=== PATIENT | female | born 1975 | race Caucasian/White ===

== ENCOUNTER → 2017-08-02 | Outpatient (CLI) | payer OTHER ==
[2017-08-02 09:03] LABS: ALBUMIN 3.6 g/dL (3.4-5.0); ALKALINE PHOSPHATASE 57 U/L (46-116); ALT/SGPT 49 U/L (14-59); AST/SGOT 41 U/L (15-37); BILIRUBIN TOTAL 0.26 mg/dL (0.20-1.00); CALCIUM 8.8 mg/dL (8.5-10.1); CARBON DIOXIDE 29.8 mmol/L (21-32); CHLORIDE SERUM 105 mmol/L (98-107); CREATININE SERUM 0.8 mg/dL (0.6-1.0); GFR1 > 60 mL/min; GLUCOSE SERUM 94 mg/dL (74-106); POTASSIUM SERUM 4.2 mmol/L (3.5-5.1); SODIUM SERUM 139 mmol/L (136-145); TOTAL PROTEIN, SERUM 7.2 g/dL (6.4-8.2); TRIGLYCERIDES 159 mg/dL (<150)
[2017-08-02 09:05] LABS: CHOLESTEROL 254 mg/dL (<200); CHOLESTEROL/HDL RATIO 2.9; HDL CHOLESTEROL 88 mg/dL (40-60)
== END | disposition home or self-care (01) ==
LOC: LB 07:35
DX: E78.5 Hyperlipidemia, unspecified (principal)

== ENCOUNTER → 2017-10-11 | Outpatient (CLI) | payer OTHER | END | disposition home or self-care (01) | LOC: MA 13:36 | PROC: BH02ZZZ Plain Radiography of Bilateral Breasts (ICD-10-PCS; principal; 2017-10-11) | DX: Z12.31 Encounter for screening mammogram for malignant neoplasm of breast (principal) | CPT/HCPCS: G0202 ==

== ENCOUNTER → 2017-11-28 | Outpatient (CLI) | payer OTHER | END | disposition home or self-care (01) | LOC: US 07:20 | PROC: BF42ZZZ Ultrasonography of Gallbladder (ICD-10-PCS; principal; 2017-11-28) | DX: R10.13 Epigastric pain (principal) ==

== ENCOUNTER 2017-12-03 06:56 | Day surgery (SDC) | payer OTHER ==
[~2017-12-03] VITALS: Ht 167.6 cm; Wt 70.8 kg
[2017-12-03 07:21] VITALS: BP 140/81
[2017-12-03 10:32] VITALS: BP 116/82
== END 2017-12-03 10:25 | disposition home or self-care (01) ==
LOC: GI 06:56 → OR 07:30 → GI 10:25
PROVIDERS: Internal Medicine Gastroenterology
PROC: 0DJD8ZZ Inspection of Lower Intestinal Tract, Via Natural or Artificial Opening Endoscopic (ICD-10-PCS; 2017-12-03)
PROC: 0DB58ZX Excision of Esophagus, Via Natural or Artificial Opening Endoscopic, Diagnostic (ICD-10-PCS; principal; 2017-12-03 07:30)
PROC: 0DB78ZX Excision of Stomach, Pylorus, Via Natural or Artificial Opening Endoscopic, Diagnostic (ICD-10-PCS; 2017-12-03 07:30)
PROC: 0DB68ZX Excision of Stomach, Via Natural or Artificial Opening Endoscopic, Diagnostic (ICD-10-PCS; 2017-12-03 07:30)
PROC: 0DB78ZZ Excision of Stomach, Pylorus, Via Natural or Artificial Opening Endoscopic (ICD-10-PCS; 2017-12-03 07:30)
DX: K31.9 Disease of stomach and duodenum, unspecified (principal); B96.81 Helicobacter pylori [H. pylori] as the cause of diseases classified elsewhere; K31.7 Polyp of stomach and duodenum; K64.8 Other hemorrhoids; Z86.010 Personal history of colon polyps; Z12.11 Encounter for screening for malignant neoplasm of colon
CPT/HCPCS: 43235; 45378; J1200; J1610; J2250; J2310; J3010; J3490

== ENCOUNTER 2018-10-14 09:59 | Emergency (ER) | payer OTHER ==
[~2018-10-14] VITALS: Ht 167.6 cm; Wt 70.3 kg
[2018-10-14 10:00] VITALS: BP 122/74; Ht 167.6 cm; Wt 70.3 kg
== END 2018-10-14 11:44 | disposition home or self-care (01) ==
LOC: ED 09:59
DX: H18.892 Other specified disorders of cornea, left eye (principal); Z90.710 Acquired absence of both cervix and uterus; Z98.890 Other specified postprocedural states

== ENCOUNTER → 2019-02-26 | Outpatient (CLI) | payer OTHER | END | disposition home or self-care (01) | LOC: US 02-20 09:00 | PROC: BW40ZZZ Ultrasonography of Abdomen (ICD-10-PCS; principal; 2019-02-26) | DX: K30 Functional dyspepsia (principal) ==

== ENCOUNTER → 2019-03-13 | Outpatient (CLI) | payer OTHER ==
[2019-03-13 07:58] LABS: BASOPHIL % 0.6 % (0-2); PLATELET COUNT 246 x10^3mcL (130-400); RED CELL DISTRIBUTION WIDTH 12.8 % (11.5-14.5)
[2019-03-13 08:52] LABS: ALBUMIN 3.7 g/dL (3.4-5.0); ALKALINE PHOSPHATASE 76 U/L (46-116); ALT/SGPT 51 U/L (14-59); AST/SGOT 17 U/L (15-37); BILIRUBIN TOTAL 0.4 mg/dL (0.20-1.00); CALCIUM 9.2 mg/dL (8.5-10.1); CHLORIDE SERUM 105 mmol/L (98-107); CREATININE SERUM 0.8 mg/dL (0.6-1.0); GFR1 > 60 mL/min; GLUCOSE SERUM 96 mg/dL (74-106); SODIUM SERUM 144 mmol/L (136-145); TOTAL PROTEIN, SERUM 7.4 g/dL (6.4-8.2); TRIGLYCERIDES 104 mg/dL (<150)
[2019-03-13 09:02] LABS: CHOLESTEROL 251 mg/dL (<200)
[2019-03-13 09:03] LABS: CHOLESTEROL/HDL RATIO 3.4; HDL CHOLESTEROL 73 mg/dL (40-60)
== END | disposition home or self-care (01) ==
LOC: LB 07:35
PROVIDERS: Internal Medicine Gastroenterology
DX: K30 Functional dyspepsia (principal); K21.0 Gastro-esophageal reflux disease with esophagitis

== ENCOUNTER 2019-07-07 09:03 | Emergency (ER) | payer OTHER ==
[~2019-07-07] VITALS: Ht 167.6 cm; Wt 73.9 kg
[2019-07-07 10:09] VITALS: BP 129/70
== END 2019-07-07 10:09 | disposition home or self-care (01) ==
LOC: ED 09:03
DX: J06.9 Acute upper respiratory infection, unspecified (principal); Z98.890 Other specified postprocedural states; Z90.710 Acquired absence of both cervix and uterus
CPT/HCPCS: Q0092

== ENCOUNTER → 2020-01-05 | Outpatient (CLI) | payer OTHER | END | disposition home or self-care (01) | LOC: RD 07:39 | DX: R76.11 Nonspecific reaction to tuberculin skin test without active tuberculosis (principal) | CPT/HCPCS: Q0092 ==

== ENCOUNTER 2020-02-11 16:28 | Emergency (ER) | payer OTHER ==
[~2020-02-11] VITALS: Ht 167.6 cm; Wt 74.8 kg
[2020-02-11 16:38] VITALS: Ht 167.6 cm; Wt 74.8 kg
[2020-02-11 17:36] VITALS: BP 126/75
== END 2020-02-11 17:36 | disposition home or self-care (01) ==
LOC: ED 16:28
DX: S61.432A Puncture wound without foreign body of left hand, initial encounter (principal); Z90.710 Acquired absence of both cervix and uterus; Z98.84 Bariatric surgery status; X58.XXXA Exposure to other specified factors, initial encounter; Y93.89 Activity, other specified; Y92.89 Other specified places as the place of occurrence of the external cause; Y99.8 Other external cause status
CPT/HCPCS: 36415; 90715

== ENCOUNTER 2020-07-13 10:09 | Emergency (ER) | payer OTHER, SELFPAY ==
[~2020-07-13] VITALS: Ht 165.1 cm; Wt 72.1 kg
[2020-07-13 10:28] VITALS: BP 121/79; Ht 165.1 cm; Wt 72.1 kg
== END 2020-07-13 12:03 | disposition home or self-care (01) ==
LOC: ED 10:09
DX: U07.1 COVID-19 (principal); Z98.890 Other specified postprocedural states; Z90.710 Acquired absence of both cervix and uterus
CPT/HCPCS: 87804; U0003-CS

== ENCOUNTER → 2020-10-28 | Outpatient (CLI) | payer OTHER ==
[2020-10-28 07:31] LABS: BASOPHIL % 1.4 % (0.2-1.3); PLATELET COUNT 262 x10^3mcL (179-408)
[2020-10-28 07:53] LABS: ALBUMIN 3.7 g/dL (3.4-5.0); ALKALINE PHOSPHATASE 75 U/L (46-116); ALT/SGPT 40 U/L (14-59); AST/SGOT 16 U/L (15-37); BILIRUBIN TOTAL 0.34 mg/dL (0.20-1.00); CARBON DIOXIDE 27.9 mmol/L (21-32); CHLORIDE SERUM 100 mmol/L (98-107); CREATININE SERUM 0.8 mg/dL (0.6-1.0); GFR1 > 60 mL/min; GLUCOSE SERUM 95 mg/dL (74-106); POTASSIUM SERUM 3.8 mmol/L (3.5-5.1); SODIUM SERUM 134 mmol/L (136-145); TRIGLYCERIDES 94 mg/dL (<150)
[2020-10-28 07:54] LABS: CHOLESTEROL 283 mg/dL (<200); HDL CHOLESTEROL 94 mg/dL (40-60)
== END | disposition home or self-care (01) ==
LOC: LB 07:08
DX: Z00.00 Encounter for general adult medical examination without abnormal findings (principal)